=== PATIENT | female | born 1960 | race Caucasian/White ===

== ENCOUNTER → 2017-10-01 14:24 | Outpatient (CLI) | payer MEDICAID | END | disposition home or self-care (01) | LOC: D.CT 14:24 | DX: R51 Headache (principal) ==

== ENCOUNTER → 2018-10-07 09:17 | Outpatient (CLI) | payer MEDICAID | END | disposition home or self-care (01) | LOC: D.RAD 09-25 09:30 → D.US 09-25 09:30 → D.RAD 09-25 10:30 → D.US 09:17 | DX: M25.552 Pain in left hip (principal); R10.2 Pelvic and perineal pain ==

== ENCOUNTER 2019-02-01 09:54 | Emergency (ER) | payer MEDICAID ==
[~2019-02-01] VITALS: Ht 162.6 cm; Wt 52.7 kg
[2019-02-01 09:56] VITALS: Ht 162.6 cm; Wt 52.7 kg
[2019-02-01] MEDS ORDERED: TIROSINT50 MCG PO (09:57)
[2019-02-01] MEDS ORDERED: XANAX1 MG PO (09:58)
[2019-02-01] MEDS ORDERED: TYLENOL W/CODEI1 TAB PO (09:58)
[2019-02-01 10:22] LABS: BASOPHILS 0.4 % (0-2); EOSINOPHILS 1.6 % (0-7); HEMATOCRIT 39.3 % (36.0-48.0); HEMOGLOBIN 13.3 g/dL (12-16); IMMATURE GRANULOCYTES 0.1 % (0-5); LYMPHOCYTES 33.5 % (15-50); MCHC 33.8 g/dL (31.0-37.0); MCV 94.5 fL (80.0-100.0); MONOCYTES 7.1 % (2-11); NEUTROPHILS 57.3 % (40-80); RBC 4.16 10x6/uL (4.00-5.40); RDW 13.7 % (11.5-14.5); WBC 7.5 10x3/uL (4.8-10.8)
[2019-02-01 10:25] LABS: PLATELET COUNT 183 10x3/uL (130-400)
[2019-02-01 10:30] LABS: INR 1.04 (0.85-1.17); PROTIME 13.1 SECONDS (11.6-15.0)
[2019-02-01 10:31] LABS: APTT 31.5 SECONDS (22.8-39.4)
[2019-02-01 10:35] LABS: ALBUMIN 3.9 g/dL (3.4-5.0); ALKALINE PHOSPHATASE 106 U/L (46-116); ALT (SGPT) 31 U/L (10-68); BILIRUBIN - TOTAL 0.41 mg/dL (0.2-1.3); CALC OSMOLALITY 278 mosm/kg (275-300); CALCIUM 8.8 mg/dL (8.5-10.1); CARBON DIOXIDE 25.6 mmol/L (21.0-32.0); CHLORIDE - SERUM 105 mmol/L (98-107); CREATININE - SERUM 0.7 mg/dL (0.6-1.3); GLUCOSE 94 mg/dL (74-106); PROTEIN - SERUM 7.7 g/dL (6.4-8.2); SODIUM 141 mmol/L (136-145); UREA NITROGEN 6 mg/dL (7-18); eGFR NON AFRICAN AMERICAN > 90 mL/min (90-120)
[2019-02-01 10:47] LABS: CKMB 1.5 U/L (0.0-3.6); CREATINE KINASE 210 UL (21-215); PRO BNP 70 pg/mL (0-125)
[2019-02-01 10:54] LABS: TROPONIN-I < 0.017 ng/mL (0.000-0.060)
[2019-02-01] MEDS ORDERED: OMEPRAZOLE40 MG PO (12:15)
[2019-02-01 12:31] VITALS: BP 135/84
== END 2019-02-01 12:32 | disposition home or self-care (01) ==
LOC: D.ER 09:54
PROVIDERS: Emergency Medicine
DX: F41.9 Anxiety disorder, unspecified (principal); J40 Bronchitis, not specified as acute or chronic; F45.8 Other somatoform disorders